=== PATIENT | male | born 1955 | race Caucasian/White ===

== ENCOUNTER 2016-07-16 18:58 | Inpatient (IN) | payer OTHER ==
--- NOTE | ~2016-07-16 | A ---
[facility] Nutrition Therapy DATE: 07/17/16 Patient: RIC BERNAL Physician: SAVANA Address: [address] [place] [address] Room/Bed: [address], Zip: [place] [address] Admit Date: 07/16/16 Date of : 55 Height: 5 7 Weight: [phone] NUTRITIONAL ASSESSMENT: REASON: NUTRITIONAL RISK POINT- UNINTENTIONAL WEIGHT LOSS PATIENT ADMITTED FOR ETOH DETOX PMH: DM, HTN Anthropometrics: HT: 5'7", WT: 124#, BMI: 19.4, %IBW: 84 Labs: NO LABS AVAILABLE Meds: DETOX PROTOCOL Assessment: CHART REVIEWED, EVENTS NOTED. PATIENT IS A 61 Y/O MALE ADMITTED FOR ETOH DETOX. PATIENT IS CURRENTLY HOMELESS, SMOKES 1 PPD, AND HAS DAILY ETOH ABUSE. PATIENT WAS A DIRECT ADMIT FROM [facility] D/T ETOH WITHDRAWAL. PATIENT STATES A POOR APPETITE AND DENIES SIGNIFICANT WEIGHT CHANGES. PATIENT IS NON-COMPLIANT WITH HTN AND DIABETIC MEDICATIONS, AND WAS ALSO UNCOOPERATIVE WITH ANSWERING ASSESSMENT QUESTIONS. PATIENT HAS A HX OF CHEMICAL DEPENDENCY TREATMENT. CURRENT PO INTAKES ARE UNAVAILABLE. PATIENT IS ON A CC DIET, AND IS EXPERIENCING ACTIVE DETOX SYMPTOMS. Dx: INADEQUATE NUTRIENT INTAKE R/T CURRENT CONDITION, ETOH ABUSE AEB <90% IBW, NUTRITIONAL RISK POINT, DECREASED APPETITE. Intervention: 1. CC DIET, 2. MEDS PER MD, 3. DETOX, 4. PSYCH Monitoring, Evaluation and Goals: 1. ADEQUATE PO INTAKES >50% OF MEALS 2. PREVENT, CORRECT MICRO/MACRO NUTRIENT DEFICIENCIES 3. PREVENT WEIGHT LOSS MONITOR: WEIGHTS, LABS, PO/FLUID INTAKES Recommendations: 1. CONTINUE CC DIET TOLERATED. OFFER SNACKS BETWEEN MEALS. 2. ENCOURAGE ADEQUATE PO AND FLUID INTAKES 3. RE-INITIATE INSULIN PER MD ORDERS AND MONITOR BLOOD GLUCOSE LEVELS 4. OBTAIN A BMP TO ASSESS NUTRITIONAL LAB VALUES 5. WEIGH PATIENT ROUTINELY (EVERY 3-4 DAYS) 6. IF PO INTAKES ARE <50% OF MEALS PLEASE ORDER GLUCERNA BID TO PROMOTE ADEQUATE KCAL AND [facility] Nutrition Therapy DATE: 07/17/16 Patient: RIC BERNAL Physician: SAVANA Address: [address] [place] [address] Room/Bed: [address], Zip: [place] [address] Admit Date: 07/16/16 Date of : [birth year] Height: 5 7 Weight: [phone] TO F/U PER PROTOCOL AND PRN R/T PATIENT MILD/MODERATELY COMPROMISED Respectfully, JIA ARANGO RD, LD Food and Nutritional Services [facility] cc: client file
--- NOTE | ~2016-07-16 | HP ---
Unit #: [id number] #: [id number] Patient: RIC BERNAL [id number] [facility] [address] [place] [address] [id number] I MR#: [id number] NAME: RIC BERNAL ROOM: 85 Age: 61 Sex: M Admission Date: 07/16/2016 : 1955 Attending Physician: Smooth Bagley M.D. Admitting Physician: Smooth Bagley M.D. Primary Care Physician: Primary Care Physician No HISTORY AND PHYSICAL HISTORY OF PRESENT ILLNESS The patient is a 61-year-old man, who has been admitted to [facility] for alcohol abuse and withdrawal. PAST MEDICAL HISTORY 1. Alcohol abuse. 2. Diabetes. 3. Hypertension. PAST SURGICAL HISTORY 1. Cholecystectomy. 2. Splenectomy. ALLERGIES No known drug allergies. MEDICATIONS 1. Levemir 10 units subcu at bedtime 2. NovoLog 5 units b.i.d. 3. Lisinopril 10 mg p.o. daily SOCIAL HISTORY The patient endorses Alcohol use. He denies any illicit drug use. He is homeless. FAMILY HISTORY Noncontributory. REVIEW OF SYSTEMS CONSTITUTIONAL: No fever or chills. HEENT: Denies any sore throat, ear pain or runny nose. CARDIOVASCULAR: Denies chest pain, irregular heart rhythm or palpitations. CHEST: Denies shortness of breath or cough. No hemoptysis. GASTROINTESTINAL: Denies nausea, vomiting, diarrhea or chronic constipation. ENDOCRINE: Denies history of increased thirst or urination. No recent significant weight loss or gain. GENITOURINARY: Denies dysuria, frequency, or hematuria. SKIN: Denies any rashes. HEMATOLOGIC: Denies history of increased bleeding or bruising. MUSCULOSKELETAL: Denies any hot, swollen joints. No generalized muscle pain. NEUROLOGIC: Denies problems with vision or speech. No frequent, severe Unit #: [id number] #: [id number] Patient: RIC BERNAL headaches. No numbness, tingling or weakness in any extremities. Denies loss of bladder or bowel control. PHYSICAL EXAMINATION GENERAL APPEARANCE: The patient is awake, alert, and in no acute distress. VITAL SIGNS: Temperature 98.3, heart rate 82, respirations 16, and blood pressure 106/72. WEIGHT: 124 pounds. HEIGHT: 5 feet 7 inches. HEENT: Head: Atraumatic and normocephalic. Pupils are equal, round, and reactive. Extraocular movements are intact. No discharge from ears or nares. NECK: Supple. Trachea is midline. HEART: Regular rate and rhythm. LUNGS: Clear. ABDOMEN: Soft and nontender. Nondistended. : Not done. SKIN: Warm, dry, and no unusual rashes or lesions. EXTREMITIES: No clubbing, edema, or cyanosis. NEUROLOGIC: Within normal limits. Cranial Nerves: II through XII: Intact. No focal deficits. Sensory and Motor Function: Grossly normal. Motor: moves all extremities well. Coordination: Gait is normal. Deep Tendon Reflexes: Intact. IMPRESSION 1. Psychiatric admission. 2. Diabetes. 3. Hypertension. RECOMMENDATIONS Psychiatric, per psychiatrist. MEDICAL I see no contraindications to participating in facility's activities. MEDICAL PROGNOSIS Fair. MEDICAL CONDITION Stable. Dictated by... Susan Coker A.P.R.N. for Jimenez Hayes M.D. AM/oliver TD: 07/17/2016 08:12 JOB #: [id number] Unit #: [id number] #: [id number] Patient: RIC BERNAL HISTORY AND PHYSICAL X Susan Coker [employer] X HISTORY AND PHYSICAL
--- NOTE | ~2016-07-16 | PN ---
Unit #: [id number] #: [id number] Patient: RIC BERNAL [id number] [facility] [address] [place] [address] [id number] I MR#: [id number] NAME: RIC BERNAL ROOM: 85 Age: 61 Sex: M Admission Date: 07/16/2016 : 1955 Attending Physician: Smooth Bagley M.D. Admitting Physician: Smooth Bagley M.D. Primary Care Physician: Primary Care Physician Xena DENNIS PROGRESS NOTES DATE 07/19/2016 DISCUSSION The patient is out of his room today and a bit more active within the therapeutic milieu. He continues to complain of symptoms of alcohol withdrawal. Dictated by... Smooth Bagley M.D. CB/román TD: 07/20/2016 04:36 JOB #: [id number] JEANNIE COATS NOTES X Smooth Bagley MD PROGRESS NOTE
--- NOTE | ~2016-07-16 | PA ---
Unit #: [id number] #: [id number] Patient: RIC BERNAL [id number] [facility] [address] [place] [address] [id number] I MR#: [id number] NAME: RIC BERNAL ROOM: [facility] Age: 61 Sex: M Admission Date: 07/16/2016 : 1955 Date of Assessment: 07/17/2016 Attending Physician: Smooth Bagley M.D. Admitting Physician: Smooth Bagley M.D. Primary Care Physician: Primary Care Physician No PSYCHIATRIC ASSESSMENT IDENTIFYING INFORMATION The patient is a 61-year-old homeless white male admitted for alcohol detox. INFORMANT(S) Chart. Patient could not be aroused for interview. CHIEF COMPLAINT None given. HISTORY OF PRESENT ILLNESS The patient is a 61-year-old white male admitted in transfer from [facility] where he presented for alcohol detox. The patient reports that he has been drinking a large amount of alcohol on a daily basis but could not quantify. He had been vomiting and had exhibited elevated vital signs and had been placed on the CIWA protocol at [facility]. When seen today, the patient is abed sleeping with a blanket covering his head. He cannot be aroused for further interview. He has a history of multiple previous chemical dependence treatments having taken place at this facility, [facility] and other facilities in [facility]. He is currently homeless as noted previously. He denies current suicidal or homicidal ideation but does have a history of a previous suicide attempt. PAST PSYCHIATRIC HISTORY As above. FAMILY HISTORY Noncontributory. SOCIAL HISTORY As noted previously, the patient is currently homeless. He reports substance use as noted previously and is a smoker. MEDICAL HISTORY Significant for a history of hypertension and diabetes mellitus/ MEDICATION HISTORY 1. Levemir. 2. NovoLog. 3. Lisinopril. ALLERGIES None. Unit #: [id number] #: [id number] Patient: RIC BERNAL MENTAL STATUS EXAM At this time, reveals the patient to be a well-developed, well-nourished white male who lies covered with a blanket. Multiple attempts to arouse the patient are unsuccessful. ASSETS AND LIABILITIES Patient's assets to be assessed. Liabilities, lack of resources, homelessness, ongoing substance use, health issues. ADMITTING DIAGNOSES 1. Alcohol use disorder. 2. Diabetes mellitus. 3. Hypertension. PSYCHIATRIC PLAN/TREATMENT GOALS The patient remains hospitalized for safety and stabilization. Routine detoxification protocol for alcohol will continue and his diabetic and antihypertensive management will continue. Patient will participate in appropriate pearson and milieu activities. ESTIMATED LENGTH OF STAY Three to five days. Dictated by... Smooth Bagley M.D. RUCHI/javier TD: 07/17/2016 17:55 JOB #: [id number] PSYCHIATRIC ASSESSMENT X Smooth Bagley MD X PSYCHIATRIC ASSESSMENT
--- NOTE | ~2016-07-16 | PN ---
Unit #: [id number] #: [id number] Patient: RIC BERNAL [id number] [facility] [address] [place] [address] [id number] I MR#: [id number] NAME: RIC BERNAL ROOM: [facility] Age: 61 Sex: M Admission Date: 07/16/2016 : 1955 Attending Physician: Smooth Bagley M.D. Admitting Physician: Smooth Bagley M.D. Primary Care Physician: Primary Care Physician Xena DENNIS PROGRESS NOTES DATE 07/18/2016 DISCUSSION The patient is abed resting comfortably today. His detox continues uneventfully. Dictated by... Smooth Bagley M.D. CB/bzg TD: 07/18/2016 12:46 JOB #: [id number] [facility] PROGRESS NOTES X Smooth Bagley MD X PROGRESS NOTE
--- NOTE | ~2016-07-16 | PN ---
Unit #: [id number] #: [id number] Patient: RIC BERNAL [id number] [facility] [address] [place] [address] [id number] I MR#: [id number] NAME: RIC BERNAL ROOM: 85 Age: 61 Sex: M Admission Date: 07/16/2016 : 1955 Attending Physician: Smooth Bagley M.D. Admitting Physician: Smooth Bagley M.D. Primary Care Physician: Primary Care Physician No [facility] PROGRESS NOTES DATE 07/20/2016 DISCUSSION The patient is in somewhat brighter spirits today and his detox continues uneventfully. Should he sustain progress, discharge will take place within the next couple of days. Dictated by... Smooth Bagley M.D. CB/bhargav TD: 07/20/2016 15:10 JOB #: [id number] [facility] PROGRESS NOTES X Smooth Bagley MD PROGRESS NOTE
--- NOTE | ~2016-07-16 | CO ---
Unit #: [id number] #: [id number] Patient: RIC BERNAL [id number] [place] [address] [id number] I MR#: [id number] NAME: RIC BERNAL ROOM: 85 Age: 61 Sex: M Admission Date: 07/16/2016 : 1955 Attending Physician: Smooth Bagley M.D. Primary Care Physician: Primary Care Physician No Consultation Date: 07/17/2016 CONSULTATION REPORT REASON FOR CONSULTATION Diabetes. SUBJECTIVE The patient is a 61-year-old male who states that he has been diabetic for a long time. He states that he is on Levemir and NovoLog. He states that his blood sugars at home typically run 150s to 200s. He states he did not follow the constant carb diet. OBJECTIVE GENERAL: The patient is a 61-year-old male who is awake, alert, and in no acute distress. VITAL SIGNS: Temperature 98.3, heart rate 80, respirations 16, blood pressure 106/72. Reportedly at midnight, his blood sugar was 300. HEENT: Head is atraumatic and normocephalic. Pupils are equal, round, and reactive. Extraocular movements are intact. No drainage from ears or nares. CHEST: Lungs are clear. CARDIOVASCULAR: S1, S2. ABDOMEN: Soft, nontender, nondistended. NEUROLOGIC: The patient is alert and oriented x3. DIAGNOSTIC STUDIES LABORATORY RESULTS: Glucose 300. ASSESSMENT Diabetes. PLAN At this time, we will continue to monitor the patient. He is on Levemir 10 units at night, NovoLog 5 units FlexPen b.i.d. We will encourage the patient to follow the constant carb diet and may need to consider doing a sliding scale if the patient's blood sugars are not controlled. We will do Accu-Cheks a.c. and h.s. Dictated by... Susan Coker A.P.R.N. for Jimenez Hayes M.D. AM/citlali TD: 07/18/2016 01:43 Unit #: [id number] #: [id number] Patient: RIC BERNAL JOB #: [id number] CONSULTATION REPORT X Susan Coker APRN X CONSULTATION REPORT
--- NOTE | ~2016-07-16 | PN ---
Unit #: [id number] #: [id number] Patient: RIC BERNAL [id number] [facility] [address] [place] [address] [id number] I MR#: [id number] NAME: RIC BERNAL ROOM: 85 Age: 61 Sex: M Admission Date: 07/16/2016 : 1955 Attending Physician: Smooth Bagley M.D. Admitting Physician: Smooth Bagley M.D. Primary Care Physician: Primary Care Physician Xena COATS NOTES DATE 07/21/2016 DISCUSSION The patient is abed today reporting that he is feeling "sick" and that he has been vomiting. He feels as though "there is something wrong with my liver and kidney." I have explained to him that his ongoing abuse of alcohol is probably inflicting some damage on his liver though there appears to be noting acute going on and I have told him to expect a.m. discharge. Dictated by... Smooth Bagley M.D. CB/román TD: 07/21/2016 23:27 JOB #: [id number] JEANNIE PROGRESS NOTES X Smooth Bagley MD PROGRESS NOTE
--- NOTE | ~2016-07-16 | DS ---
Unit #: [id number] #: [id number] Patient: RIC BERNAL [id number] [facility] [address] [place] [address] [id number] I MR#: [id number] NAME: RIC BRENAL ROOM: [facility] Age: 61 Sex: M Admission Date: 07/16/2016 : 1955 Discharge Date: 07/22/2016 Attending Physician: Smooth Bagley M.D. Primary Care Physician: Primary Care Physician No DISCHARGE SUMMARY REASON FOR ADMISSION The patient is a 61-year-old white male, admitted for alcohol detox. HOSPITAL COURSE The patient was admitted to the [facility] unit and placed on routine detoxification protocol for alcohol. Routine diabetic management was undertaken by the medical team. The patient's detox was an uneventful one. On 07/22/2016, the patient stated that he had made arrangements to go to [facility] and discharge was ordered. FINAL DIAGNOSES Alcohol use disorder, diabetes mellitus, hypertension. DISPOSITION ON DISCHARGE The patient was discharged on the following medications; Zestril 10 mg daily for hypertension, NovoLog sliding scale for diabetic management. DISCHARGE INSTRUCTIONS No dietary or physical restrictions were placed on the patient at the time of discharge. FOLLOWUP Followup will take place through the auspices of [facility]. PROGNOSIS The patient's prognosis is considered fair. Dictated by... Smooth Bagley M.D. CB/citlali TD: 07/22/2016 22:12 JOB #: [id number] Unit #: [id number] #: [id number] Patient: RIC BERNAL DISCHARGE SUMMARY X Smooth Bagley MD X DISCHARGE SUMMARY
[~2016-07-16 18:58] MED LIST: ACETAMINOPHEN325 MG PO; COLACE PO; FAMOTIDINE PO; FOLIC ACID1 MG; LIBRIUM25 MG PO; MILK OF MAGNESIA PO; MULTIVITAMIN1 UDCAP PO; NICOTINE TRANSD21 MG EXT; PHENERGAN12.5 MG DOB; PHENERGAN25 MG PO; THIAMINE HCL100 MG PO
[2016-07-17 12:43] LABS: URINE APPEARANCE CLEAR; URINE BILIRUBIN NEG (NEG); URINE BLOOD NEG (NEG); URINE COLOR YELLOW; URINE GLUCOSE >1000 MG/DL (NEG); URINE KETONE NEG (NEG); URINE LEUKOCYTE ESTERASE NEG (NEG); URINE NITRATE NEG (NEG); URINE PH 6.5 (5-8); URINE PROTEIN NEG (NEG); URINE SPECIFIC GRAVITY 1.036 (1.003-1.035)
[2016-07-17 13:05] LABS: AMPHETAMINE NEG (NEG); BARBITURATES NEG (NEG); BENZODIAZEPINES POS (NEG); COCAINE NEG (NEG); MARIJUANA NEG (NEG); OPIATES NEG (NEG); TRICYCLIC ANTIDEPRESSANTS NEG (NEG); U METHADONE NEG (NEG)
[2016-07-18 13:19] LABS: THYROID STIMULATING HORMONE 3.55 uIU/ml (0.34-5.60)
[2016-07-18 13:26] LABS: FREE THYROXIN (T4) 0.83 ng/dL (0.58-1.64)
== END 2016-07-22 15:05 | disposition home or self-care (01) | DRG 897 ==
LOC: P1E 18:58
PROVIDERS: Specialist
PROC: HZ2ZZZZ Detoxification Services for Substance Abuse Treatment (ICD-10-PCS; principal; 2016-07-16)
DX: F11.20 Opioid dependence, uncomplicated (principal); I95.9 Hypotension, unspecified; E87.1 Hypo-osmolality and hyponatremia; I10 Essential (primary) hypertension; E11.9 Type 2 diabetes mellitus without complications; Z59.0 Homelessness; E86.0 Dehydration; F17.210 Nicotine dependence, cigarettes, uncomplicated; F10.10 Alcohol abuse, uncomplicated
CPT/HCPCS: 80307; 81003; 82947; 84439; 84443; 86592